=== PATIENT | male | born 1985 | race Two or more races ===

== ENCOUNTER 2020-09-19 17:29 | Emergency (ER) | payer SELFPAY ==
[~2020-09-19] VITALS: Ht 177.8 cm; Wt 77.1 kg
--- NOTE | 2020-09-19 19:11 | NUR ---
Patient discharged to home in stable condition with brisk steady gait. Written and verbal after care instructions given. Patient verbalizes understanding & compliance of instructions. Stressed follow up with his primary doctor or return to ER for worsening s/s.
== END 2020-09-19 19:12 | disposition home or self-care (01) ==
LOC: ER 17:30
DX: S61.012A Laceration without foreign body of left thumb without damage to nail, initial encounter (principal); W26.0XXA Contact with knife, initial encounter; Y92.89 Other specified places as the place of occurrence of the external cause
CPT/HCPCS: A4663